=== PATIENT | female | born 1980 | race Caucasian/White ===

== ENCOUNTER → 2020-10-02 | Outpatient (CLI) | payer BC | LOC: RAD 16:34 | DX: L29.8 Other pruritus (principal) | CPT/HCPCS: 71046 ==

== ENCOUNTER → 2021-05-22 | Outpatient (CLI) | payer BC ==
[2021-05-23 08:14] LABS: RHEUMATOID ARTHRITIS FACTOR <10.0 IU/mL (0.0-13.9)
[2021-05-23 14:14] LABS: ACTIN (SMOOTH MUSCLE) ANTIBODY 8 Units (0-19); MITOCHONDRIAL (M2) ANTIBODY <20.0 Units (0.0-20.0)
[2021-05-23 15:15] LABS: LIVER-KIDNEY MICROSOMAL AB <1.0 Units (0.0-20.0)
[2021-05-23 16:15] LABS: ALDOLASE 3.2 U/L (3.3-10.3); ANGIOTENSIN-CONVERTING ENZYME 66 U/L (14-82)
== END ==
LOC: LAB 10:17
PROVIDERS: Internal Medicine
DX: L50.1 Idiopathic urticaria (principal); M25.50 Pain in unspecified joint; R23.2 Flushing; R53.83 Other fatigue; R76.8 Other specified abnormal immunological findings in serum; L29.9 Pruritus, unspecified; M79.10 Myalgia, unspecified site
CPT/HCPCS: 36415; 82085; 82164; 82550; 82728; 83516; 83520; 83540; 83550; 85652; 86140; 86200; 86235; 86376; 86431